=== PATIENT | female | born 1990 | race Asian ===

== ENCOUNTER 2021-02-04 21:09 | Emergency (ER) | payer MEDICAID ==
[~2021-02-04] VITALS: Ht 165.1 cm; Wt 63.5 kg
[2021-02-04 21:09] VITALS: BP 124/74
== END 2021-02-04 23:13 | disposition home or self-care (01) ==
LOC: ER 21:18
DX: S01.511D Laceration without foreign body of lip, subsequent encounter (principal); L90.5 Scar conditions and fibrosis of skin; W54.0XXD Bitten by dog, subsequent encounter